=== PATIENT | female | born 1990 | race Caucasian/White ===

== ENCOUNTER 2024-04-23 15:48 | Inpatient (IN) | payer OTHER, SELFPAY ==
[2024-04-23 11:06] VITALS: BP 120/95
[2024-04-23 12:19] VITALS: BMI 38.0
[2024-04-23] MEDS: TORADOL 15 MG IV (12:43)
[2024-04-23] MEDS: ZOFRAN 4 MG IV ×2 (12:43→19:53)
[2024-04-23] MEDS: NSS 1000 IV ×2 (12:44→18:22)
[2024-04-23 12:49] LABS: % Basophils 0.6 % (0-2); % Eosinophils 1.1 % (0-6); % Immature Granulocytes 0.4 % (0-0.5); % Lymphocytes 28.9 % (20.5-51.1); Absolute Basophils 0.1 10^3/uL (0-0.2); Absolute Eosinophils 0.1 10^3/uL (0-0.7); Absolute Immature Granulocytes 0.1 10^3/uL (0-0.05); Absolute Lymphocytes 3.3 10^3/uL (1.2-3.4); Absolute Monocytes 0.5 10^3/uL (0.1-0.6); Absolute Neutrophils 7.4 10^3/uL (1.4-6.5); Hematocrit 38.9 % (37.0-47.0); Hemoglobin 13.7 g/dL (12.0-16.0); Mean Corp Hgb Conc. 35.2 g/dL (33.0-37.0); Mean Corpuscular Hgb 32.2 pg (27.0-31.0); Mean Corpuscular Volume 91.5 fL (81.0-99.0); Mean Platelet Volume 11.5 fL (7.4-10.4); Nucleated Red Blood Cells % 0 %; Platelet Count 305 10^3/uL (130-400); Red Blood Cell Count 4.25 10^6/uL (4.20-5.40); White Blood Cell Count 11.4 10^3/uL (4.8-10.8)
--- NOTE | 2024-04-23 12:52 | ED.GENMED ---
History of Present Illness
General
Chief Complaint: Abdominal Pain
Source: patient
Exam Limitations: none
Time Seen by Provider: 04/23/24 12:06
History of Present Illness
History of Present Illness:
34-year-old female presents complaining of persistent lower abdominal pain and bloating sensation over the past 2 to 3 days. There is nausea without vomiting. She thought she was constipated and took a suppository as well as magnesium citrate.
She had large bowel movements however her pain persisted. The pain is made worse with eating. No urinary symptoms. No chest pain or shortness of breath.
Past History
Past History
ED Past Medical History: Psychiatric (bipolar) and Other (Kidney stones, migraine)
Social History
Tobacco: Non-smoker
Alcohol: None
Personal: Single
Living: with family
Family History
Family History: Negative Diabetes, Hypertension or CAD
Phy Exam
Physical Exam
Physical Exam:
General: Well-appearing female no acute respiratory distress
HEENT: Normocephalic atraumatic
Lungs: Clear no wheeze
Abdomen is soft tender to the lower abdomen bilaterally normal bowel sounds nondistended
Extremities: No cyanosis or edema
Course
Orders/Labs/Results
Orders:
Orders
04/23/24 12:23
Test Result ONCE
04/23/24 12:25
CMP [Comprehensive Metabolic Panel] Urgent
Complete Blood Count/With Diff Urgent
HCG, Urine Qualitative Screen Urgent
Date Specimen was Collected: 04/23/24
Time Specimen was Collected: 12:23
Lipase Urgent
Urinalysis Reflex To Culture Urgent
Date Specimen was Collected: 04/23/24
Time Specimen was Collected: 12:22
04/23/24 12:32
CT Abd/pelvis W Iv Cont Urgent
Comment:
Reason For Exam: lower abdominal pain
04/23/24 12:36
0.9% Sodium Chloride 1000 ml [Nss] 1,000 ml IV BOLUS
Ketorolac [Toradol] 15 mg IV NOW STA
Ondansetron Injectable [Zofran] 4 mg IV NOW STA
04/23/24 14:47
HYDROmorphone [Dilaudid] 0.5 mg IV NOW STA
04/23/24 14:55
LevoFLOXacin 500 MG/100 ML [Levaquin] 500 mg in 100 ml IV NOW
MetroNIDAZOLE 500 MG/100 ML [Flagyl 500 mg] 100 ml IV NOW
Abnormal Lab Results
04/23/24
12:25
WBC 11.4 H 10^3/uL
(4.8-10.8)
MCH 32.2 H pg
(27.0-31.0)
MPV 11.5 H fL
(7.4-10.4)
Abs Immat Gran (auto) 0.1 H 10^3/uL
(0-0.05)
Absolute Neuts (auto) 7.4 H 10^3/uL
(1.4-6.5)
Glucose 100 H mg/dl
(70-99)
Urine Ketones 3+ A
(Negative)
04/23/24 12:25
04/23/24 12:25
Vital Signs
Initial and Last Documented VS:
Initial Vital Signs
Temp Pulse Resp BP Pulse Ox
98.4 F 82 16 120/95 98
04/23/24 11:06 04/23/24 11:06 04/23/24 11:06 04/23/24 11:06 04/23/24 11:06
Last Documented Vital Signs
Temp Pulse Resp BP Pulse Ox
98.4 F 82 16 120/95 98
04/23/24 11:06 04/23/24 11:06 04/23/24 11:06 04/23/24 11:06 04/23/24 11:06
*Critical Care Note
Total Time (30-74mins, 75-104mins- exclusive of procedures): Not Applicable
ED Attending Note
-
Portions of this chart may have been created with voice recognition software.� Occasional wrong word or��sound alike� substitutions may have occurred due to the inherent limitations of voice recognition software.
Discharge Plan
Departure
Patient Disposition: Admit
Date of Disposition: 04/23/24
Time of Disposition: 14:57
Admit to: Med/Surg
Presentation/result/management discussed w/ accepting MD/DO: Hospitalist
Discharge Problem:
Diverticulitis
Prescriptions:
No Action
lamotrigine [Lamictal XR] 300 MG tablet extended release 24hr
300 mg PO DAILY
indomethacin 50 MG capsule
50 mg PO TID Qty: 15 3RF
tamsulosin 0.4 MG capsule
0.4 mg PO HS Qty: 5 3RF
Referrals:
Dinah Pratt DO [Family Provider] -
Interventions
Interventions:
*Risk Screen - Suicide Last Done: 04/23/24 11:06
*General Assessment Last Done: 04/23/24 11:06
*Neglect/Abuse Screening Last Done: 04/23/24 11:06
XM-Uolhiv-Zlfgartdav Assessment Last Done: 04/23/24 13:04
Discharge Date and Time
Print Language: CYMRO
[2024-04-23 12:56] LABS: Urine Albumin Negative (Neg - Trace); Urine Bilirubin Negative (Negative); Urine Character Clear (Clear); Urine Color Yellow; Urine Glucose Negative (Negative); Urine Ketone 3+ (Negative); Urine Leukocyte Negative (Negative); Urine Nitrite Negative (Negative); Urine Occult Blood Negative (Negative); Urine Specific Gravity 1.015 (<1.030); Urine Urobilinogen Negative (Neg - 1+)
[2024-04-23 13:03] LABS: HCG, Urine Qualitative Screen Negative
[2024-04-23 13:06] LABS: ALT (SGPT) 26 U/L (0-35); AST (SGOT) 22 U/L (14-36); Albumin 4.7 g/dl (3.5-5.0); Alkaline Phosphatase 67 U/L (38-126); Blood Urea Nitrogen 11 mg/dl (7-17); Calcium 9.7 mg/dl (8.4-10.2); Carbon Dioxide 23 mmol/L (22-30); Chloride 105 mmol/L (98-107); Estimated Creatinine Clearance 112 ml/min; Glucose 100 mg/dl (70-99); Lipase 39 U/L (23-300); Potassium 4.2 mmol/L (3.5-5.1); Sodium 143 mmol/L (135-145); Total Bilirubin 1.1 mg/dl (0.2-1.3); Total Protein 7.7 g/dl (6.3-8.2); eGFR > 60.00
--- NOTE | 2024-04-23 14:59 | HPS.HSE ---
Family Physician
-
Family Physician: Dinah Pratt, DO
Chief Complaint
-
lower abdominal pain
History of Present Illness
HPI: 34-year-old female with distant history of left kidney stone status post lithotripsy, bipolar mood disorder/depression, IBS; presented with lower abdominal pain ongoing for 4 days, associated with nausea but without vomiting.
She initially thought her symptom was due to constipation, hence she took suppository which resulted in a large bowel movement but her pain persisted.
Her abdominal pain got worse which prompted her to come to the emergency room.
Medical History
Past Medical History
Past Medical History: Reports Other
Additional Past Medical History:
left kidney stone status post lithotripsy
bipolar mood disorder/depression
IBS
Past Surgical History: Reports Other
Additional Past Surgical History:
lithotripsy
Social History
Tobacco: Former Smoker (quit 5 weeks ago)
Alcohol: Occasional
Family History
Family History: Not pertinent
Allergies / Home Medications
Allergies reflects when Allergies were last updated in [email or web address].
Home Medications with original date entered in [email or web address]
Allergy/Medication List:
Allergies
Allergy/AdvReac Type Severity Reaction Status Date / Time
ceftriaxone sodium Allergy Severe Itching Verified 04/23/24 11:05
[From Rocephin]
amoxicillin [Amoxicillin] Allergy Rash Verified 04/23/24 11:05
Penicillins Allergy Unknown Verified 04/23/24 11:05
Home Medications
escitalopram oxalate 20 mg tablet (Lexapro) 20 mg PO DAILY 04/23/24
trazodone 50 mg tablet 50 mg PO HS 04/23/24
Review of Systems
-
Abdomen/GI: Reports See HPI, Abdominal Pain and Nausea; Denies Vomiting
Physical Exam
Vital Signs
Vital Signs
Temp Pulse Resp BP Pulse Ox
36.9 C 82 16 120/95 98
04/23/24 11:06 04/23/24 11:06 04/23/24 11:06 04/23/24 11:06 04/23/24 11:06
Physical Exam
General: Well Developed, Well Nourished, No Apparent Distress and Conversant
HEENT: NormoCephalic, Moist mucous membranes and Atraumatic
Respiratory: Clear and Non Labored Respirations; No Accessory Resp Muscle Use
Cardiac: S1/S2 and Regular Rhythm; No Murmur or Rub
GI: Soft, Non Distended, Normal Bowel Sounds and Tender (lower abdomen BL); No Organomegaly
Rectal: Deferred by Provider
Musculoskeletal: No Clubbing, No Cyanosis and No Edema
Skin: No Rash
Neuro: Awake and Alert
Psych: Calm and Intact Judgment/Insight
Laboratory Results
-
04/23/24 12:25
04/23/24 12:25
Laboratory Results
Total Bilirubin 1.1 mg/dl (0.2-1.3) 04/23/24 12:25
AST 22 U/L (14-36) 04/23/24 12:25
ALT 26 U/L (0-35) 04/23/24 12:25
Alkaline Phosphatase 67 U/L (38-126) 04/23/24 12:25
Lipase 39 U/L (23-300) 04/23/24 12:25
Data Reviewed
-
CT Scan: Report Reviewed by me
Lab Data: Labs Reviewed by me
Impression/Plan
-
HPI: 34-year-old female with distant history of left kidney stone status post lithotripsy, bipolar mood disorder/depression, IBS; presented with lower abdominal pain ongoing for 4 days, associated with nausea but without vomiting.
She initially thought her symptom was due to constipation, hence she took suppository which resulted in a large bowel movement but her pain persisted.
Her abdominal pain got worse which prompted her to come to the emergency room.
CT AP:
Acute sigmoid diverticulitis with evidence for microperforation. No pericolonic abscess.
A/P:
# Abd pain 2/2 acute sigmoid diverticulitis with microperforation.
Pain control with IV morphine as needed
Continue IV Levaquin and Flagyl
N.p.o. with IVF for now
Recommend outpatient GI for colonoscopy in 4 weeks. Pt informed.
# distant history of left kidney stone status post lithotripsy
# bipolar mood disorder/depression
Continue prior to admission Lexapro
Mood stable
# IBS
DVT ppx: Lovenox SQ
FC
[2024-04-23] MEDS: DILAUDID 0.5 MG IV (15:21)
[2024-04-23 15:24] VITALS: BP 117/72
[2024-04-23] MEDS: FLAGYL 500 MG 100 IV ×2 (15:24→21:21)
[2024-04-23] MEDS: LEVAQUIN 100 IV (16:33)
[2024-04-23 17:55] VITALS: BMI 37.5
[2024-04-23 17:59] VITALS: BP 127/71
--- NOTE | 2024-04-23 18:14 | PTCARENOTE ---
Pt arrived to [facility] [address] from ED. Pt walked from stretcher to standing scale, then to the bed. Pt AAOx3, abdomen TTP, assessment completed. Pt states mild nausea and abdominal pain. Oriented to call love and room, bed locked in lowest position, call
love within reach.
[2024-04-23] MEDS: LOVENOX 40 MG SC (18:21)
[2024-04-23] MEDS: ULTRAM 50 MG PO (18:35)
[2024-04-23] MEDS: MORPHINE SULFATE 2 MG IV (21:20)
[2024-04-23] MEDS: DESYREL 50 MG PO (21:21)
[2024-04-23 22:47] VITALS: BP 93/49
[2024-04-24 04:30] VITALS: BP 108/58
[2024-04-24] MEDS: NSS 1000 IV (05:16)
[2024-04-24] MEDS: FLAGYL 500 MG 100 IV ×3 (05:16→21:56)
[2024-04-24] MEDS: TYLENOL 650 MG PO (05:23)
[2024-04-24] MEDS: ULTRAM 50 MG PO (05:23)
[2024-04-24] MEDS: ZOFRAN 4 MG IV ×3 (05:29→19:20)
[2024-04-24] MEDS: REGLAN 10 MG IV (07:39)
[2024-04-24] MEDS: LEXAPRO 20 MG PO (07:39)
[2024-04-24] MEDS: MORPHINE SULFATE 2 MG IV (07:40)
[2024-04-24 07:41] VITALS: BP 116/68
[2024-04-24 07:55] LABS: % Basophils 0.7 % (0-2); % Eosinophils 1.9 % (0-6); % Immature Granulocytes 0.5 % (0-0.5); % Lymphocytes 36.5 % (20.5-51.1); % Monocytes 6.3 % (1.7-9.3); % Neutrophils 54.1 % (42.2-75.2); Absolute Basophils 0.1 10^3/uL (0-0.2); Absolute Eosinophils 0.2 10^3/uL (0-0.7); Absolute Lymphocytes 3.1 10^3/uL (1.2-3.4); Absolute Monocytes 0.5 10^3/uL (0.1-0.6); Absolute Neutrophils 4.5 10^3/uL (1.4-6.5); Hematocrit 31.7 % (37.0-47.0); Mean Corp Hgb Conc. 34.7 g/dL (33.0-37.0); Mean Corpuscular Hgb 31.6 pg (27.0-31.0); Mean Corpuscular Volume 91.1 fL (81.0-99.0); Mean Platelet Volume 11.6 fL (7.4-10.4); Nucleated Red Blood Cells % 0 %; Platelet Count 246 10^3/uL (130-400); Red Blood Cell Count 3.48 10^6/uL (4.20-5.40); Red Cell Dist. Width 12.1 % (11.5-14.5); White Blood Cell Count 8.4 10^3/uL (4.8-10.8)
[2024-04-24 08:15] LABS: Blood Urea Nitrogen 10 mg/dl (7-17); Calcium 8.6 mg/dl (8.4-10.2); Carbon Dioxide 20 mmol/L (22-30); Chloride 109 mmol/L (98-107); Estimated Creatinine Clearance > 125 ml/min; Glucose 81 mg/dl (70-99); Magnesium 1.9 mg/dl (1.6-2.3); Potassium 4.3 mmol/L (3.5-5.1); Sodium 140 mmol/L (135-145); eGFR > 60.00
--- NOTE | 2024-04-24 11:41 | W.PN.HOSP.TC ---
Today's Communication/Plan
-
see A/P
Assessment / Plan
Assessment / Plan
HPI: 34-year-old female with distant history of left kidney stone status post lithotripsy, bipolar mood disorder/depression, IBS; presented with lower abdominal pain ongoing for 4 days, associated with nausea but without vomiting.
She initially thought her symptom was due to constipation, hence she took suppository which resulted in a large bowel movement but her pain persisted.
Her abdominal pain got worse which prompted her to come to the emergency room.
CT AP:
Acute sigmoid diverticulitis with evidence for microperforation. No pericolonic abscess.
A/P:
# Abd pain 2/2 acute sigmoid diverticulitis with microperforation.
Pain control with IV morphine as needed
Continue IV Levaquin and Flagyl
trial of clears today, ADAT
Recommend outpatient GI for colonoscopy in 4 weeks. Pt informed.
# distant history of left kidney stone status post lithotripsy
# bipolar mood disorder/depression
Continue prior to admission Lexapro
Mood stable
# IBS
DVT ppx: Lovenox SQ
FC
DW fiance at bedside
Anticipated Discharge: Within 24 hours
Subjective/Interval History
-
Date of Service: April 24, 2024
Objective Data
-
Labs:
Laboratory Results
04/24/24
06:45
WBC 8.4
Hgb 11.0 L
Hct 31.7 L
Plt Count 246
Sodium 140
Potassium 4.3
Chloride 109 H
Carbon Dioxide 20 L
BUN 10
Creatinine 0.7
Glucose 81
Calcium 8.6
Vital Signs:
Vital Signs
Temp Pulse Resp BP Pulse Ox
36.8 C 70 16 116/68 97
04/24/24 07:41 04/24/24 07:41 04/24/24 07:41 04/24/24 07:41 04/24/24 08:00
I&O
04/23/24 04/24/24 04/25/24
06:59 06:59 06:59
Intake Total 1200 / 1200
Balance 1200 / 1200
Review of Systems
-
Abdomen/GI: Reports Abdominal Pain (improved)
Physical Exam
-
General: Well Developed, Well Nourished, No Apparent Distress, Comfortable, Conversant and Obese; Negative Respiratory Distress
HEENT: Normocephalic, Atraumatic, Nose Appears Normal and Ears Appear Normal; Negative Oxygen
Respiratory: Clear to Auscultation and Non Labored Respirations; Negative Accessory Resp Muscle Use
Cardiac: Regular Rhythm and S1/S2
GI: Soft, Nontender, Nondistended and Normal Bowel Sounds
Skin: Warm and Dry
Neuro: Awake, Alert, Oriented, AO x 3 and Nonfocal/Grossly Intact
Psych: Calm and Intact Judgement/Insight
Data Reviewed
-
CT Scan: Report Reviewed by me
Labs: Labs Reviewed by me
--- NOTE | 2024-04-24 15:18 | CM ---
Patient seen bedside.
IA completed.
Patient lives with Fiance in a 1 floor appartment.
Patient independent prior to admission.
Patient works and drives.
No hx VN.
PCP; Dr Pratt
Pharmacy: [facility]
Plan: home no needs anticipated.
[2024-04-24 15:40] VITALS: BP 125/69
[2024-04-24] MEDS: LEVAQUIN 150 IV (16:03)
[2024-04-24] MEDS: LOVENOX 40 MG SC (17:40)
[2024-04-24] MEDS: COMPAZINE 5 MG IV (21:09)
--- NOTE | 2024-04-24 21:30 | PTCARENOTE ---
Pt. reporting persisting nausea @2019 unresolved by IV Zofran administration @1919. [facility] [employer] contacted and IV prochlorperazine administered. Pt. states relief of nausea shortly after administration. Diet lowered to clear liquids and pt. updated on
diet change.
[2024-04-24] MEDS: DESYREL PO ×2 (21:56→22:02)
[2024-04-24] MEDS: DESYREL 50 MG PO (23:14)
[2024-04-24 23:48] VITALS: BP 110/66
[2024-04-25] MEDS: FLAGYL 500 MG 100 IV ×3 (06:41→22:33)
[2024-04-25 07:28] LABS: Blood Urea Nitrogen 6 mg/dl (7-17); Calcium 9.3 mg/dl (8.4-10.2); Carbon Dioxide 18 mmol/L (22-30); Chloride 107 mmol/L (98-107); Estimated Creatinine Clearance 111 ml/min; Glucose 98 mg/dl (70-99); Potassium 4.4 mmol/L (3.5-5.1); Sodium 141 mmol/L (135-145); eGFR > 60.00
[2024-04-25 07:40] LABS: % Basophils 0.6 % (0-2); % Eosinophils 0.9 % (0-6); % Immature Granulocytes 0.6 % (0-0.5); % Lymphocytes 24.4 % (20.5-51.1); % Neutrophils 68.5 % (42.2-75.2); Absolute Basophils 0.1 10^3/uL (0-0.2); Absolute Eosinophils 0.1 10^3/uL (0-0.7); Absolute Immature Granulocytes 0.1 10^3/uL (0-0.05); Absolute Lymphocytes 2.3 10^3/uL (1.2-3.4); Absolute Monocytes 0.5 10^3/uL (0.1-0.6); Absolute Neutrophils 6.6 10^3/uL (1.4-6.5); Hematocrit 33.5 % (37.0-47.0); Hemoglobin 11.9 g/dL (12.0-16.0); Mean Corp Hgb Conc. 35.5 g/dL (33.0-37.0); Mean Corpuscular Hgb 31.4 pg (27.0-31.0); Mean Corpuscular Volume 88.4 fL (81.0-99.0); Mean Platelet Volume 11.5 fL (7.4-10.4); Nucleated Red Blood Cells % 0 %; Platelet Count 303 10^3/uL (130-400); Red Blood Cell Count 3.79 10^6/uL (4.20-5.40); Red Cell Dist. Width 11.6 % (11.5-14.5); White Blood Cell Count 9.6 10^3/uL (4.8-10.8)
[2024-04-25 07:45] VITALS: BP 120/78
[2024-04-25] MEDS: LEXAPRO 20 MG PO (08:22)
--- NOTE | 2024-04-25 09:54 | W.PN.HOSP.TC ---
Today's Communication/Plan
-
see A/P
Assessment / Plan
Assessment / Plan
HPI: 34-year-old female with distant history of left kidney stone status post lithotripsy, bipolar mood disorder/depression, IBS; presented with lower abdominal pain ongoing for 4 days, associated with nausea but without vomiting.
She initially thought her symptom was due to constipation, hence she took suppository which resulted in a large bowel movement but her pain persisted.
Her abdominal pain got worse which prompted her to come to the emergency room.
CT AP:
Acute sigmoid diverticulitis with evidence for microperforation. No pericolonic abscess.
A/P:
# Abd pain 2/2 acute sigmoid diverticulitis with microperforation.
Pain control with IV morphine as needed
Continue IV Levaquin and Flagyl
Cont trial of clears
Compazine PRN for N/V
Recommend outpatient GI for colonoscopy in 4 weeks. Pt informed.
# distant history of left kidney stone status post lithotripsy
# bipolar mood disorder/depression
Continue prior to admission Lexapro
Mood stable
# IBS
DVT ppx: Lovenox SQ
FC
DW RN
Anticipated Discharge: 24 - 48 hours
Subjective/Interval History
-
Date of Service: April 25, 2024
Objective Data
-
Labs:
Laboratory Results
04/25/24
06:32
WBC 9.6
Hgb 11.9 L
Hct 33.5 L
Plt Count 303 D
Sodium 141
Potassium 4.4
Chloride 107
Carbon Dioxide 18 L
BUN 6 L
Creatinine 0.8
Glucose 98
Calcium 9.3
Vital Signs:
Vital Signs
Temp Pulse Resp BP Pulse Ox
36.6 C 66 18 120/78 99
04/25/24 07:45 04/25/24 07:45 04/25/24 07:45 04/25/24 07:45 04/25/24 07:45
I&O
04/24/24 04/25/24 04/26/24
06:59 06:59 06:59
Intake Total 1460 / 1460
Balance 1460 / 1460
Review of Systems
-
Abdomen/GI: Reports Abdominal Pain (improved), Nausea and Vomiting
Physical Exam
-
General: Well Developed, Well Nourished, No Apparent Distress, Comfortable, Conversant and Obese; Negative Respiratory Distress
HEENT: Normocephalic, Atraumatic, Nose Appears Normal and Ears Appear Normal; Negative Oxygen
Respiratory: Clear to Auscultation and Non Labored Respirations; Negative Accessory Resp Muscle Use
Cardiac: Regular Rhythm and S1/S2
GI: Soft, Nontender, Nondistended and Normal Bowel Sounds
Skin: Warm and Dry
Neuro: Awake, Alert, Oriented and AO x 3
Psych: Calm and Intact Judgement/Insight
Data Reviewed
-
CT Scan: Report Reviewed by me
Labs: Labs Reviewed by me
[2024-04-25] MEDS: NSS 1000 IV (10:12)
[2024-04-25] MEDS: ZOFRAN 4 MG IV ×2 (11:39→19:46)
[2024-04-25] MEDS: COMPAZINE 5 MG IV (14:09)
--- NOTE | 2024-04-25 14:20 | CM ---
Reviewed the chart notes. Diet advanced to low residual. CM continues to be available to patient/family and is monitoring medical plan for needs at discharge.
Plan: Discharge to home when medically stable. No needs anticipated.
[2024-04-25 15:10] VITALS: BP 115/70
[2024-04-25] MEDS: LEVAQUIN 150 IV (16:32)
[2024-04-25] MEDS: LOVENOX 40 MG SC (17:54)
[2024-04-25] MEDS: DESYREL 50 MG PO (22:33)
[2024-04-25 23:21] VITALS: BP 123/75
[2024-04-26] MEDS: ZOFRAN 4 MG IV (03:39)
[2024-04-26] MEDS: SENOKOT-S 1 TABLET PO ×2 (03:42→19:40)
[2024-04-26] MEDS: NSS 1000 IV (03:43)
[2024-04-26] MEDS: COMPAZINE 5 MG IV (04:59)
[2024-04-26] MEDS: FLAGYL 500 MG 100 IV ×3 (05:01→21:48)
[2024-04-26 07:02] VITALS: BP 112/70
[2024-04-26 07:18] LABS: % Basophils 0.5 % (0-2); % Eosinophils 0.8 % (0-6); % Immature Granulocytes 0.4 % (0-0.5); % Lymphocytes 28.5 % (20.5-51.1); % Monocytes 5.5 % (1.7-9.3); % Neutrophils 64.3 % (42.2-75.2); Absolute Basophils 0.1 10^3/uL (0-0.2); Absolute Eosinophils 0.1 10^3/uL (0-0.7); Absolute Lymphocytes 2.7 10^3/uL (1.2-3.4); Absolute Monocytes 0.5 10^3/uL (0.1-0.6); Absolute Neutrophils 6.1 10^3/uL (1.4-6.5); Hematocrit 34.4 % (37.0-47.0); Hemoglobin 12.4 g/dL (12.0-16.0); Mean Corpuscular Hgb 32.4 pg (27.0-31.0); Mean Corpuscular Volume 89.8 fL (81.0-99.0); Mean Platelet Volume 11.5 fL (7.4-10.4); Nucleated Red Blood Cells % 0 %; Platelet Count 293 10^3/uL (130-400); Red Blood Cell Count 3.83 10^6/uL (4.20-5.40); Red Cell Dist. Width 11.7 % (11.5-14.5); White Blood Cell Count 9.5 10^3/uL (4.8-10.8)
[2024-04-26 07:45] LABS: Blood Urea Nitrogen 6 mg/dl (7-17); Calcium 9.3 mg/dl (8.4-10.2); Carbon Dioxide 18 mmol/L (22-30); Chloride 107 mmol/L (98-107); Estimated Creatinine Clearance 111 ml/min; Glucose 91 mg/dl (70-99); Potassium 4.6 mmol/L (3.5-5.1); Sodium 142 mmol/L (135-145); eGFR > 60.00
[2024-04-26] MEDS: LEXAPRO 20 MG PO (08:28)
--- NOTE | 2024-04-26 09:49 | W.PN.HOSP.TC ---
Today's Communication/Plan
-
see AP
Assessment / Plan
Assessment / Plan
HPI: 34-year-old female with distant history of left kidney stone status post lithotripsy, bipolar mood disorder/depression, IBS; presented with lower abdominal pain ongoing for 4 days, associated with nausea but without vomiting.
She initially thought her symptom was due to constipation, hence she took suppository which resulted in a large bowel movement but her pain persisted.
Her abdominal pain got worse which prompted her to come to the emergency room.
CT AP:
Acute sigmoid diverticulitis with evidence for microperforation. No pericolonic abscess.
A/P:
# Abd pain 2/2 acute sigmoid diverticulitis with microperforation.
Pain control with IV morphine as needed
Continue IV Levaquin and Flagyl
advance clears to FLD
Compazine PRN for N/V
Recommend outpatient GI for colonoscopy in 4 weeks. Pt informed.
# distant history of left kidney stone status post lithotripsy
# bipolar mood disorder/depression
Continue prior to admission Lexapro
Mood stable
# IBS
DVT ppx: Lovenox SQ
FC
DW RN
Anticipated Discharge: Within 24 hours
Subjective/Interval History
-
Date of Service: April 26, 2024
Objective Data
-
Labs:
Laboratory Results
04/26/24
06:38
WBC 9.5
Hgb 12.4
Hct 34.4 L
Plt Count 293
Sodium 142
Potassium 4.6
Chloride 107
Carbon Dioxide 18 L
BUN 6 L
Creatinine 0.8
Glucose 91
Calcium 9.3
Vital Signs:
Vital Signs
Temp Pulse Resp BP Pulse Ox
36.6 C 59 16 112/70 96
04/26/24 07:02 04/26/24 07:02 04/26/24 07:02 04/26/24 07:02 04/26/24 07:02
I&O
04/25/24 04/26/24 04/27/24
06:59 06:59 06:59
Intake Total 1460 / 1460 1260 / 1260
Output Total 100 / 100
Balance 1460 / 1460 1160 / 1160
Review of Systems
-
Abdomen/GI: Denies Abdominal Pain (improved), Nausea or Vomiting
Physical Exam
-
General: Well Developed, Well Nourished, No Apparent Distress, Comfortable, Conversant and Obese; Negative Respiratory Distress
HEENT: Normocephalic, Atraumatic, Nose Appears Normal and Ears Appear Normal; Negative Oxygen
Respiratory: Clear to Auscultation and Non Labored Respirations; Negative Accessory Resp Muscle Use
Cardiac: Regular Rhythm and S1/S2
GI: Soft, Nontender, Nondistended and Normal Bowel Sounds
Skin: Warm and Dry
Neuro: Awake, Alert, Oriented and AO x 3
Psych: Calm and Intact Judgement/Insight
Data Reviewed
-
CT Scan: Report Reviewed by me
Labs: Labs Reviewed by me
--- NOTE | 2024-04-26 11:45 | CM ---
Reviewed the chart notes. Patient's diet downgraded to full liquid. CM continues to be available to patient/family and is monitoring medical plan for needs at discharge.
Plan: Discharge to home when medically stable. No anticipated needs.
[2024-04-26 15:50] VITALS: BP 120/73
[2024-04-26] MEDS: LEVAQUIN 150 IV (16:25)
[2024-04-26] MEDS: LOVENOX 40 MG SC (17:58)
[2024-04-26] MEDS: DESYREL 50 MG PO (21:48)
[2024-04-26 23:51] VITALS: BP 123/73
[2024-04-27] MEDS: FLAGYL 500 MG 100 IV ×2 (05:12→14:37)
[2024-04-27 07:22] LABS: % Basophils 0.7 % (0-2); % Eosinophils 0.8 % (0-6); % Immature Granulocytes 0.7 % (0-0.5); % Monocytes 5.5 % (1.7-9.3); % Neutrophils 60.3 % (42.2-75.2); Absolute Basophils 0.1 10^3/uL (0-0.2); Absolute Eosinophils 0.1 10^3/uL (0-0.7); Absolute Immature Granulocytes 0.1 10^3/uL (0-0.05); Absolute Lymphocytes 3.4 10^3/uL (1.2-3.4); Absolute Monocytes 0.6 10^3/uL (0.1-0.6); Absolute Neutrophils 6.4 10^3/uL (1.4-6.5); Hematocrit 35.9 % (37.0-47.0); Hemoglobin 12.5 g/dL (12.0-16.0); Mean Corp Hgb Conc. 34.8 g/dL (33.0-37.0); Mean Corpuscular Hgb 30.8 pg (27.0-31.0); Mean Corpuscular Volume 88.4 fL (81.0-99.0); Mean Platelet Volume 11.5 fL (7.4-10.4); Nucleated Red Blood Cells % 0 %; Platelet Count 321 10^3/uL (130-400); Red Blood Cell Count 4.06 10^6/uL (4.20-5.40); Red Cell Dist. Width 11.8 % (11.5-14.5); White Blood Cell Count 10.6 10^3/uL (4.8-10.8)
[2024-04-27 07:49] VITALS: BP 126/81
[2024-04-27 07:56] LABS: Blood Urea Nitrogen 6 mg/dl (7-17); Calcium 9.3 mg/dl (8.4-10.2); Carbon Dioxide 20 mmol/L (22-30); Chloride 106 mmol/L (98-107); Estimated Creatinine Clearance 111 ml/min; Glucose 86 mg/dl (70-99); Potassium 4.3 mmol/L (3.5-5.1); Sodium 142 mmol/L (135-145); eGFR > 60.00
[2024-04-27] MEDS: LEXAPRO 20 MG PO (08:24)
--- NOTE | 2024-04-27 10:15 | W.PN.HOSP.TC ---
Addendum entered and electronically signed by Lisseth Villatoro MD 04/27/24 12:57:
total DC time 36 min
Original Note:
Today's Communication/Plan
-
see A/P
Assessment / Plan
Assessment / Plan
HPI: 34-year-old female with distant history of left kidney stone status post lithotripsy, bipolar mood disorder/depression, IBS; presented with lower abdominal pain ongoing for 4 days, associated with nausea but without vomiting.
She initially thought her symptom was due to constipation, hence she took suppository which resulted in a large bowel movement but her pain persisted.
Her abdominal pain got worse which prompted her to come to the emergency room.
CT AP:
Acute sigmoid diverticulitis with evidence for microperforation. No pericolonic abscess.
A/P:
# Abd pain 2/2 acute sigmoid diverticulitis with microperforation.
Pain control with IV morphine as needed
Continue IV Levaquin and Flagyl
advance diet to low residue
Compazine PRN for N/V
Recommend outpatient GI for colonoscopy in 4 weeks. Pt informed.
# distant history of left kidney stone status post lithotripsy
# bipolar mood disorder/depression
Continue prior to admission Lexapro
Mood stable
# IBS
DVT ppx: Lovenox SQ
FC
Anticipated Discharge: Within 24 hours
Subjective/Interval History
-
Date of Service: April 27, 2024
Objective Data
-
Labs:
Laboratory Results
04/27/24
05:43
WBC 10.6
Hgb 12.5
Hct 35.9 L
Plt Count 321
Sodium 142
Potassium 4.3
Chloride 106
Carbon Dioxide 20 L
BUN 6 L
Creatinine 0.8
Glucose 86
Calcium 9.3
Vital Signs:
Vital Signs
Temp Pulse Resp BP Pulse Ox
36.8 C 61 17 126/81 99
04/27/24 07:49 04/27/24 07:49 04/27/24 07:49 04/27/24 07:49 04/27/24 07:49
I&O
04/26/24 04/27/24 04/28/24
06:59 06:59 06:59
Intake Total 1260 / 1260 720 / 720
Output Total 100 / 100
Balance 1160 / 1160 720 / 720
Review of Systems
-
Abdomen/GI: Denies Abdominal Pain, Nausea or Vomiting
Physical Exam
-
General: Well Developed, Well Nourished, No Apparent Distress, Comfortable, Conversant and Obese; Negative Respiratory Distress
HEENT: Normocephalic, Atraumatic, Nose Appears Normal and Ears Appear Normal; Negative Oxygen
Respiratory: Clear to Auscultation and Non Labored Respirations; Negative Accessory Resp Muscle Use
Cardiac: Regular Rhythm and S1/S2
GI: Soft, Nontender, Nondistended and Normal Bowel Sounds
Skin: Warm and Dry
Neuro: Awake, Alert, Oriented and AO x 3
Psych: Calm and Intact Judgement/Insight
Data Reviewed
-
CT Scan: Report Reviewed by me
Labs: Labs Reviewed by me
--- NOTE | 2024-04-27 12:34 | W.DCSUMMARY ---
Discharge Summary
Discharge Data
Date of Admission: 04/23/24
Date of Discharge: 04/27/24
-
Pending Results: No
Hospital Course
Principal Diagnosis:
Acute sigmoid diverticulitis with microperforation but no pericolonic abscess.
Chronic Diagnoses:�
Distant history of left kidney stone status post lithotripsy
Bipolar mood disorder/depression
Irritable bowel syndrome
Consultations:�
None
Procedures:�
None
Clinical course:�
This is a 34-year-old female with past medical history as stated above, who presented with abdominal pain ongoing for 4 days.
Problem 1:
Abd pain due to acute sigmoid diverticulitis with microperforation.
Her CT AP noted acute sigmoid diverticulitis with microperforation but no pericolonic abscess.
She was treated with IV Levaquin and Flagyl while in the hospital, and was discharged with oral Levaquin and Flagyl for 3 more days following discharge (total 7 days).
Her diet was advanced to low residue, which she tolerated well prior to discharge.
She has been informed to follow-up with GI outpatient for colonoscopy eval in 4 to 6 weeks following resolution of her diverticulitis.
As for the rest of her medical problems, they were stable during her hospital stay.
Discharge Plan
-
Patient Disposition: Home (Routine Discharge)
Discharge Diagnosis/Procedures: Abdominal pain due to acute sigmoid diverticulitis with microperforation.
Condition: Good
Diet: As tolerated
Activity: As tolerated
Driving Restrictions: As prior to admission
Activity Restrictions/Additional Instructions:
Follow-up with your GI doctor for colonoscopy in 4 to 6 weeks
Referrals:
Dinah Pratt, DO [Family Provider] - in less than 1 week
Additional Discharge Medication Instructions: Continue antibiotic Levaquin and Flagyl for 3 more days.
Prescriptions:
New
metronidazole 500 mg tablet
500 mg PO Q8H 3 Days Qty: 9 0RF
levofloxacin 750 mg tablet
750 mg PO Q24H 3 Days Qty: 3 0RF
Continued
trazodone 50 mg Tablet
50 mg PO HS
escitalopram oxalate [Lexapro] 20 mg Tablet
20 mg PO DAILY
Discharge Orders:
Discharge Patient (As Directed); Ordered 04/27/24
Ordered By: Lisseth Villatoro
Discharge Date and Time
Print Language: TELUGU
--- NOTE | 2024-04-27 12:39 | CM ---
Met with patient and fiance at bedside to discuss discharge plan
Patient's fiance will provide transport home
Plan: discharge to home today; no services needed
[2024-04-27 15:38] VITALS: BP 122/73
[2024-04-27] MEDS: LEVAQUIN 150 IV (16:03)
== END 2024-04-27 17:48 | disposition home or self-care (01) | DRG 392 ==
LOC: 2 SOUTH 15:48
PROVIDERS: Physician Assistant; ADMITTING PHYSICIAN Internal Medicine; EMERGENCY PHYSICIAN Emergency Medicine; FAMILY PHYSICIAN Family Medicine
DX: K57.20 Diverticulitis of large intestine with perforation and abscess without bleeding (principal); F31.9 Bipolar disorder, unspecified; K58.9 Irritable bowel syndrome, unspecified; Z87.442 Personal history of urinary calculi; Z79.899 Other long term (current) drug therapy; Z87.891 Personal history of nicotine dependence; Z88.0 Allergy status to penicillin; Z88.1 Allergy status to other antibiotic agents
CPT/HCPCS: 74177; 80048; 80053; 81003; 81025; 83690; 83735; 85025; 96361; 96365; 96375; 99285; Q9967